=== PATIENT | male | born 1950 | race Two or more races ===

== ENCOUNTER 2020-07-29 07:50 | Day surgery (SDC) | payer MEDICARE ==
[~2020-07-29] VITALS: Ht 170.2 cm; Wt 87.0 kg
[2020-07-29] MEDS ORDERED: FENTANYL PF 250 MCG/5ML ONE (08:22)
[2020-07-29] MEDS ORDERED: NEOSTIGMINE 1 MG/ML, 10ML ONE ×2 (08:23→08:37)
[2020-07-29] MEDS ORDERED: PROPOFOL 10 MG/ML, 20ML ONE (08:23)
[2020-07-29] MEDS ORDERED: ROCURONIUM 10MG/ML,5ML ONE ×2 (08:23→08:37)
[2020-07-29] MEDS ORDERED: GLYCOPYRROLATE 0.2MG/1ML, 5ML ONE ×2 (08:23→08:37)
[2020-07-29] MEDS ORDERED: CEFAZOLIN 1,000 MG ONE (08:23)
[2020-07-29] MEDS ORDERED: CHLORHEXIDINE 15 ML UDC MM STA (08:29)
[2020-07-29] MEDS ORDERED: LACTATED RINGERS 1,000 ML IV SCH (08:30)
[2020-07-29 08:31] VITALS: BP 114/65
[2020-07-29] MEDS ORDERED: LISI-170 PO (08:39)
[2020-07-29] MEDS ORDERED: MELO15TA24 PO (08:39)
[2020-07-29] MEDS ORDERED: CIPR500T3 PO (08:39)
[2020-07-29] MEDS ORDERED: TAMS-11 PO (08:39)
[2020-07-29] MEDS ORDERED: SITA1TBM4 PO (08:39)
[2020-07-29] MEDS ORDERED: ATOR20TA37 PO (08:39)
[2020-07-29] MEDS ORDERED: HYDR-826 PO (08:39)
[2020-07-29] MEDS ORDERED: NYST1000 PO (08:39)
[2020-07-29 08:59] LABS: MICROSCOPIC NOT IND
[2020-07-29] MEDS ORDERED: PLEASE ENTER HEIGHT AND WEIGHT MC SCH (09:00)
[2020-07-29] MEDS ORDERED: LABETALOL 5MG/ML, 20ML IV PRN (09:00)
[2020-07-29] MEDS ORDERED: FENTANYL PF 100 MCG/2ML IV PRN (09:00)
[2020-07-29] MEDS ORDERED: HYDROmorphone 1 MG/ML, 1ML INJ IVPush PRN (09:00)
[2020-07-29] MEDS ORDERED: morphine SULFATE 10 MG/ML, 1ML IVPush PRN (09:00)
[2020-07-29] MEDS ORDERED: OXYcodone 5 MG/5 ML ORAL.SOL UDC PO PRN (09:00)
[2020-07-29] MEDS ORDERED: ACETAMINOPHEN 325 MG TABLET PO PRN (09:00)
[2020-07-29] MEDS ORDERED: MEPERIDINE/PF 25MG/0.5ML IVPush PRN (09:00)
[2020-07-29] MEDS ORDERED: ONDANSETRON 2MG/ML, 2ML IVPush PRN (09:00)
[2020-07-29] MEDS ORDERED: hydrALAzine 20 MG/ML, 1ML IV PRN (09:00)
[2020-07-29] MEDS ORDERED: FENTANYL PF 100 MCG/2ML ONE (10:26)
[2020-07-29] MEDS ORDERED: OXYcodone 5 MG/5 ML ORAL.SOL UDC ONE (11:21)
== END 2020-07-29 14:45 | disposition home or self-care (01) ==
LOC: OUT 07:50
PROVIDERS: ATTEND Student in an Organized Health Care Education/Training Program
DX: N40.1 Benign prostatic hyperplasia with lower urinary tract symptoms (principal); N32.89 Other specified disorders of bladder; R30.9 Painful micturition, unspecified; N30.10 Interstitial cystitis (chronic) without hematuria; E78.5 Hyperlipidemia, unspecified; I10 Essential (primary) hypertension; E11.9 Type 2 diabetes mellitus without complications; Z79.2 Long term (current) use of antibiotics; Z79.899 Other long term (current) drug therapy; Z98.890 Other specified postprocedural states; Z20.822 Contact with and (suspected) exposure to COVID-19
CPT/HCPCS: 52601; 81003; 82962; 87635; 88305; 93005; J0690; J2704; J2710; J3010; J7120